=== PATIENT | male | born 1975 | race Caucasian/White ===

== ENCOUNTER 2018-04-24 08:54 | Day surgery (SDC) | payer OTHER ==
[~2018-04-24 08:54] MED LIST: Propofol 200 MG/20 ML SDV ONE
[2018-04-24] MEDS ORDERED: Sodium Chloride 0.9% 10 ML Syringe FLUSH PRN (09:15)
[2018-04-24] MEDS ORDERED: Lactated Ringers 1,000 ML IV SCH (09:15)
--- NOTE | 2018-04-24 10:17 | PCM.HPR ---
H & P Addendum review - H & P Addendum Review Date of Original H & P: 04/17/18 Date Reviewed: 04/24/18 Time Reviewed: 10:17 Patient was Examined: No Changes
[2018-04-24] MEDS ORDERED: Lidocaine 2% 100 MG/5 ML Syringe ONE (10:30)
[2018-04-24] MEDS ORDERED: Propofol 200 MG/20 ML SDV ONE ×2 (10:30→10:37)
--- NOTE | 2018-04-24 10:53 | PCM.OPNOTE ---
- General Post-Op/Procedure Note Date of Surgery/Procedure: 04/24/18 Operative Procedure(s): EGD and Colonoscopy Findings: Both Normal Pre Op Diagnosis: Chronic Abd pain. Hx Gasstritis. Change in Bowel Habits Post-Op Diagnosis: Same Anesthesia Technique: MAC Primary Surgeon: Raymundo Evans Complications: None Condition: Good
[2018-04-24 12:47] VITALS: BP 116/70
--- NOTE | 2018-04-24 18:19 | OR ---
Date of Procedure: 04/24/2018 PREOPERATIVE DIAGNOSES: 1. Chronic abdominal pain. 2. Change in bowel habits. 3. History of gastritis. POSTOPERATIVE DIAGNOSES: 1. Normal esophagogastroduodenoscopy. 2. Normal colonoscopy. PROCEDURES: 1. Esophagogastroduodenoscopy. 2. Colonoscopy. ANESTHESIA: IV sedation: PROCEDURE IN DETAIL: The patient was brought to the procedure room where he was placed on the left side and IV sedation administered. Oral bite block was placed and the upper endoscope advanced into the esophagus under direct vision without difficulty. Vocal cords were viewed and were normal. Scope was advanced to the third portion of the duodenum. Duodenum and pylorus were normal. Antrum and body of the stomach were normal. Retroflexion reveals a normal appearing fundus. There was no hiatal hernia. There were no evidence of gastritis, erosions, ulcerations, or other abnormalities noted. Air was removed from the stomach and the scope withdrawn through the remaining esophagus, which appears normal. The patient tolerated this portion of the procedure well. Next, colonoscopy was performed after digital rectal exam was done, which was normal. Colonoscope was inserted and advanced to the level of the cecum without difficulty. Cecal position was confirmed by identifying the appendiceal lumen and the ileocecal valve. Prep was good and surfaces were well visualized. Upon withdrawing the scope, the ascending, transverse, and descending colon were normal in appearance. Sigmoid colon and rectum were normal. Retroflexion was normal. Air was removed, and the scope withdrawn. Patient tolerated the procedure well and returned to recovery in stable condition. Recommend routine colon screening at age 51. FELIPA GORDON MD /[id number]
== END 2018-04-24 12:03 | disposition home or self-care (01) ==
LOC: LL.SDS 08:54
PROVIDERS: ATTEND Surgery
DX: R19.4 Change in bowel habit (principal); K29.70 Gastritis, unspecified, without bleeding
CPT/HCPCS: 00813; J2001; J2704; J7120

== ENCOUNTER 2019-11-29 17:42 | Emergency (ER) | payer OTHER ==
[2019-11-29 17:56] VITALS: BP 118/87; PULSE 94
[2019-11-29] MEDS ORDERED: Lidocaine 2% 5 ML SDV INJECT ONE (18:02)
[2019-11-29] MEDS ORDERED: Bacitracin/Neomycin/Polymyxin B Oint 0.9 GM U/D Packet TOP ONE (18:09)
--- NOTE | 2019-11-29 18:31 | EDM.PDOC ---
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 No loss of function of arm/hand. Bleeding controlled. No other injuries reported. - Related Data Allergies Allergy/AdvReac Type Severity Reaction Status Date / Time No Known Allergies Allergy Verified 11/29/19 17:52 Home Meds: Home Meds . [No Known Home Meds] 11/29/19 [History] Past Medical History Other Gastrointestinal History: c/o abdominal pain - Past Surgical History GI Surgical History: Reports: Cholecystectomy Other GI Surgeries/Procedures: Cholecystectomy in 2018 Social & Family History - Tobacco Use Smoking Status *Q: Never Smoker Second Hand Smoke Exposure: No - Caffeine Use Caffeine Use: Reports: Coffee - Recreational Drug Use Recreational Drug Use: No ED ROS GENERAL - Review of Systems Review Of Systems: See Below Musculoskeletal: Reports: Other (right arm laceration) Skin: Reports: Other (right arm laceration) Neurological: Reports: No Symptoms ED EXAM, SKIN/RASH Exam: See Below Exam Limited By: No Limitations General Appearance: Alert, WD/WN, No Apparent Distress Eye Exam: Bilateral Eye: EOMI, PERRL Throat/Mouth: Normal Voice, No Airway Compromise Head: Atraumatic, Normocephalic Neck: Supple Respiratory/Chest: No Respiratory Distress Neurological: Alert, Oriented, Normal Cognition, Normal Gait, No Motor/Sensory Deficits Psychiatric: Normal Affect, Normal Mood Skin: Warm, Wound/Incision (5cm right arm laceration) ED SKIN PROCEDURES - Laceration/Wound Repair Right Lower Arm Appearance: Subcutaneous, Linear, Clean Distal NVT: Neuro & Vascular Intact, No Tendon Injury Anesthetic Type: Local Local Anesthesia - Lidocaine (Xylocaine): 2% Plain Local Anesthetic Volume: 5cc Skin Prep: Saline Exploration/Debridement/Repair: Wound Explored, Explored to Base, No Foreign Material Found Suture Size: 3-0 # of Sutures: 5 Suture Type: Interrupted (3), Mattress (2) Drain Placement: No Sterile Dressing Applied: Nurse Tetanus Status Addressed: Yes Complications: No Course - Vital Signs Last Recorded V/S: Last Vital Signs Temp 36.6 C 11/29/19 17:55 Pulse 94 11/29/19 17:55 Resp 18 11/29/19 17:55 BP 118/87 11/29/19 17:55 Pulse Ox 95 11/29/19 17:55 - Orders/Labs/Meds Meds: Medications Discontinued Medications Generic Name Dose Route Start Last Admin Trade Name Crescencio PRN Reason Stop Dose Admin Lidocaine 5 ml 11/29/19 18:02 11/29/19 18:06 Xylocaine-Mpf 2% INJECT 11/29/19 18:03 5 ml ONETIME ONE Administration Neomycin/Polymyxin/Bacitracin 1 each 11/29/19 18:09 11/29/19 18:13 Triple Antibiotic Oint TOP 11/29/19 18:10 1 each ONETIME ONE Administration - Re-Assessments/Exams Free Text/Narrative Re-Assessment/Exam: 11/29/19 18:29 Laceration repaired. Wound care reviewed. Follow up otherwise as needed if any problems. 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 Free Text/Narrative Re-Assessment/Exam: 11/29/19 18:35 Patient declined tetanus update. Will check on immunization record tomorrow with local clinic. Departure - Departure Time of Disposition: 18:30 Disposition: Home, Self-Care 01 Condition: Good Clinical Impression: Forearm laceration Qualifiers: Encounter type: initial encounter Laterality: right Qualified Code(s): S51.811A - Laceration without foreign body of right forearm, initial encounter - Discharge Information *PRESCRIPTION DRUG MONITORING PROGRAM REVIEWED*: Not Applicable *COPY OF PRESCRIPTION DRUG MONITORING REPORT IN PATIENT [place]: Not Applicable Instructions: Sutured Wound Care, [id number] Referrals: PCP,None [Primary Care Provider] - Forms: ED Department Discharge Additional Instructions: Check on your tetanus status at your clinic tomorrow. You need an update if its been more than 10 years. Follow up as needed if any problems/signs of infection noted. Sutures out 10-12 days. Sepsis Event Note (ED) - Evaluation Sepsis Screening Result: No Definite Risk - Focused Exam Vital Signs: Vital Signs Temp Pulse Resp BP Pulse Ox 11/29/19 17:55 36.6 C 94 18 118/87 95
== END 2019-11-29 18:45 | disposition home or self-care (01) ==
LOC: LL.ED 17:42
DX: S51.811A Laceration without foreign body of right forearm, initial encounter (principal); W26.8XXA Contact with other sharp object(s), not elsewhere classified, initial encounter
CPT/HCPCS: 12002; 99282; J2001

== ENCOUNTER 2021-05-13 20:19 | Emergency (ER) | payer BC, OTHER ==
[2021-05-13 21:26] LABS: ANION GAP 11.7 meq/L (7-15); CHLORIDE,CL 103 mmol/L (98-107); SODIUM,NA 138 mmol/L (136-145)
[2021-05-13 21:41] LABS: CORONAVIRUS COVID-19 NAA NEGATIVE (NEGATIVE); RESPIRATORY SYNCYTIAL VIR NAA NEGATIVE (NEGATIVE)
[2021-05-13 23:50] VITALS: BP 136/86; PULSE 91
== END 2021-05-13 22:05 | disposition home or self-care (01) ==
LOC: LL.ED 20:19
DX: I49.3 Ventricular premature depolarization (principal); B34.9 Viral infection, unspecified; Z20.822 Contact with and (suspected) exposure to COVID-19
CPT/HCPCS: 0241U; 36415; 71046; 80053; 81001; 83605; 83735; 84484; 85025; 87081; 87430; 93005; 93010; 99284; 99284-25